=== PATIENT | male | born 1945 | race Caucasian/White ===

== ENCOUNTER 2018-04-08 06:26 | Day surgery (SDC) | payer OTHER ==
[~2018-04-08] VITALS: Ht 182.9 cm; Wt 76.0 kg
[~2018-04-08 06:26] MED LIST: FEOSOL325 MG PO; FIBERCON625 MG PO; LO-DOSE ASPIRIN81 M2 PO; PROSCAR5 MG PO
[2018-04-08 07:11] VITALS: BP 132/81
[2018-04-08 10:13] VITALS: BP 138/81
== END 2018-04-08 10:45 | disposition home or self-care (01) ==
LOC: SDC 06:26
DX: H35.81 Retinal edema (principal); H35.371 Puckering of macula, right eye; H26.491 Other secondary cataract, right eye; N40.1 Benign prostatic hyperplasia with lower urinary tract symptoms; N13.8 Other obstructive and reflux uropathy; E78.5 Hyperlipidemia, unspecified; Z79.82 Long term (current) use of aspirin; Z90.5 Acquired absence of kidney
CPT/HCPCS: J0690; J0713; J2250; J2405; J3010